=== PATIENT | male | born 1960 ===

== ENCOUNTER 2017-11-15 09:33 | Emergency (ER) | payer BC ==
[2017-11-15 09:42] VITALS: BP 133/84
--- NOTE | 2017-11-15 11:08 | UC ---
Complaint Male HPI - HPI Summary HPI Summary: 1 WEEK OF LEFT GROIN PAIN. NO FEVER OR URINARY SX. NO BACK PAIN OR NAUSEA. HAS H /O INGUINAL HERNIA REPAIR ABOUT 20 YEARS AGO. STATES HE HAD SIMILAR SX 2012 AND WAS TX FOR UTI. - History of Current Complaint Chief Complaint: UCAbdominalPain Stated Complaint: ABD PAIN Time Seen by Provider: 11/15/17 10:24 Hx Obtained From: Patient Onset/Duration: Gradual Onset, Lasting Days, Still Present Timing: Constant Severity Initially: Moderate Severity Currently: Moderate Pain Intensity: 4 Pain Scale Used: 0-10 Numeric Location: Groin - LEFT Aggravating Factor(s): Nothing Alleviating Factor(s): Nothing - Allergies/Home Medications Allergies/Adverse Reactions: Allergies Allergy/AdvReac Type Severity Reaction Status Date / Time No Known Allergies Allergy Verified 11/15/17 09:37 PMH/Surg Hx/FS Hx/Imm Hx Previously Healthy: Yes - Surgical History Surgical History: Yes Surgery Procedure, Year, and Place: hernia repairs x2 Right: 02/11 Left: - Family History Known Family History: Positive: Hypertension - Social History Alcohol Use: Rare Substance Use Type: None Smoking Status (MU): Never Smoked Tobacco Review of Systems Constitutional: Negative Skin: Negative Respiratory: Negative Cardiovascular: Negative Gastrointestinal: Negative Genitourinary: Other - LEFT GROIN PAIN All Other Systems Reviewed And Are Negative: Yes Physical Exam Triage Information Reviewed: Yes Appearance: Well-Appearing, No Pain Distress, Well-Nourished Vital Signs: Initial Vital Signs Temp 98 F 11/15/17 09:39 Pulse 87 11/15/17 09:39 Resp 18 11/15/17 09:39 BP 133/84 11/15/17 09:39 Pulse Ox 100 11/15/17 09:39 Vital Signs Reviewed: Yes Eyes: Positive: Conjunctiva Clear ENT: Positive: Hearing grossly normal Neck: Positive: Supple Respiratory: Positive: No respiratory distress, No accessory muscle use Cardiovascular: Positive: Pulses Normal Abdomen Description: Positive: Nontender, Soft, Other: - NO GROIN TENDERNESS.. Negative: CVA Tenderness (R), CVA Tenderness (L), Distended, Guarding Bowel Sounds: Positive: Present Musculoskeletal: Positive: No Edema Neurological: Positive: Alert Psychological: Positive: Age Appropriate Behavior Skin: Negative: rashes UC Physical Exam Vital Signs On Initial Exam: Initial Vitals Temp Pulse Resp BP Pulse Ox 98 F 87 18 133/84 100 11/15/17 09:39 11/15/17 09:39 11/15/17 09:39 11/15/17 09:39 11/15/17 09:39 - Genitalia Exam Male Genitalia: Circumcised, Other - NO SCROTAL TENDERNESS OR TESTICULAR TENDERNESS. NO APPRECIABLE INGUINAL HERNIA Diagnostics - Laboratory Diagnostic Studies Completed/Ordered: URINE DIP UNREMARKABLE - Radiology CT ABD/PELVIS W/O CONTRAST Xray Interpretation: Positive (See Comments) - 1. NO EVIDENCE FOR ACUTE FINDING. 2. STATUS POST LEFT INGUINAL HERNIA REPAIR, NO EVIDENCE FOR RECURRENT HERNIA. 3. MARKEDLY ENLARGED PROSTATE GLAND. Radiology Interpretation Completed By: Radiologist Complaint Male Course/Dx - Course Course Of Treatment: UNCLEAR CAUSE OF DISCOMFORT. URINE UNREMARKABLE. CT SHOWS ENLARGED PROSTATE BUT OTHERWISE UNREMARKABLE. FOLLOW-UP UROLOGY. TO ED IF SX WORSEN. - Differential Dx/Diagnosis Provider Diagnoses: 1. LEFT GROIN PAIN. 2. ENLARGED PROSTATE Discharge - Discharge Plan Condition: Stable Disposition: HOME Patient Education Materials: Benign Prostatic Hypertrophy (ED), Groin Pain (ED) Forms: *Work Release Referrals: Isidro Young MD [Medical Doctor] - 1 Week Additional Instructions: CT SHOWED AN ENLARGED PROSTATE BUT OTHERWISE UNREMARKABLE. FOLLOW-UP WITH UROLOGY. GO TO THE ED WITHOUT FAIL IF YOUR SYMPTOMS WORSEN.
--- NOTE | 2017-11-15 12:10 | RAD ---
INDICATION: Left inguinal pain, remote history of inguinal surgery repair. COMPARISON: There are no prior studies available for comparison. TECHNIQUE: A CT scan of the abdomen and pelvis was performed without intravenous or oral contrast. Contiguous axial sections were obtained from the lung bases through the symphysis pubis. Images were reconstructed in the coronal and sagittal planes. FINDINGS: The lung bases are clear. No pleural effusion is present. The very top of the liver is cut off on this study. The liver and spleen are within normal limits in size. No significant focal abnormality is seen on this noncontrast study. No calcified gallstones are seen. The pancreas appears to be within normal limits. The adrenal glands and kidneys are normal in size. No renal calculi or hydronephrosis is seen. No ureteral or bladder calculi are seen. The prostate gland is significantly enlarged measuring 6.3 cm in transverse dimension. The aorta is normal in caliber with mild calcific plaque present. No significant enlarged retroperitoneal lymph nodes are seen. The stomach, small and large bowel appear nondistended. The appendix is not well visualized. There is a moderate amount retained stool present throughout the colon. There is mild descending and sigmoid diverticulosis without evidence for diverticulitis or colitis. There is a small periumbilical hernia containing fat. The patient is status post left inguinal hernia repair there appears to be a mesh graft in place. There is no evidence for recurrent hernia. No free intraperitoneal air or fluid is seen. No significant focal osseous abnormality is seen. IMPRESSION: 1. NO EVIDENCE FOR ACUTE FINDING. 2. STATUS POST LEFT INGUINAL HERNIA REPAIR, NO EVIDENCE FOR RECURRENT HERNIA. 3. MARKEDLY ENLARGED PROSTATE GLAND.
== END 2017-11-15 12:49 | disposition home or self-care (01) ==
LOC: UCEAST 09:33
DX: R10.9 Unspecified abdominal pain (principal); N40.0 Benign prostatic hyperplasia without lower urinary tract symptoms; Z98.890 Other specified postprocedural states
CPT/HCPCS: 74176; 81003; 99211; G0463